=== PATIENT | female | born 1955 | race Caucasian/White ===

== ENCOUNTER 2021-06-06 16:00 | Inpatient (IN) | payer OTHER, MEDICAID ==
[~2021-06-06] VITALS: Ht 170.2 cm; Wt 57.0 kg
[2021-06-06] MEDS ORDERED: METO1TAB32 (16:30)
[2021-06-06] MEDS ORDERED: BUDE10.2 (16:31)
[2021-06-06] MEDS ORDERED: FURO40TA2 (16:31)
[2021-06-06] MEDS ORDERED: ATOR40TA75 (16:31)
[2021-06-06] MEDS ORDERED: ZOLO100T (16:31)
[2021-06-06] MEDS ORDERED: FOLI1TAB11 (16:31)
[2021-06-06] MEDS ORDERED: LISI5TAB11 (16:31)
[2021-06-06] MEDS ORDERED: ALBU8.5H (16:31)
[2021-06-06] MEDS ORDERED: ASPI81CH33 (16:31)
[2021-06-06] MEDS ORDERED: INCR1INH (16:31)
[2021-06-06 17:58] LABS: VENOUS PH 7.352 UNITS (7.330-7.430)
[2021-06-06 17:59] LABS: VENOUS BASE EXCESS -0.4 (-2.0-2.0); VENOUS HCO3 25.6 MEQ/L (23.0-27.0); VENOUS PARTIAL PRESSURE CO2 47.3 mmHg (38.0-50.0); VENOUS PARTIAL PRESSURE O2 25.6 mmHg (30.0-50.0); VENOUS STANDARD HCO3 22.8 MEQ/L; VENOUS TOTAL CO2 27.1 MEQ/L (24.0-28.0)
[2021-06-06 18:08] LABS: BASO # 0.1 10^3/uL (0.0-0.2); BASO % 0.7 % (0.0-1.0); EOS # 0.2 10^3/uL (0.0-0.5); EOS % 1.4 % (0.0-3.0); HEMATOCRIT 40.5 % (36.0-47.0); HEMOGLOBIN 13.6 g/dl (12.0-15.5); LYMPH # 1.8 10^3/uL (1.5-5.0); LYMPH % 17.6 % (24.0-44.0); MEAN CORPUSCULAR HEMOGLOBIN 32.6 pg (27.0-33.0); MEAN CORPUSCULAR HGB CONC 33.6 g/dl (32.0-36.5); MEAN CORPUSCULAR VOLUME 97.1 fl (80.0-96.0); MONO # 0.9 10^3/uL (0.0-0.8); MONO % 8.1 % (2.0-8.0); NEUTROPHILS # 7.5 10^3/uL (1.5-8.5); NEUTROPHILS % 71.6 % (36.0-66.0); PLATELET COUNT, AUTOMATED 312 10^3/uL (150-450); RED BLOOD COUNT 4.17 10^6/uL (4.00-5.40); WHITE BLOOD COUNT 10.4 10^3/uL (4.0-10.0)
[2021-06-06 18:42] LABS: ALBUMIN 4.3 GM/DL (3.2-5.2); ALT/SGPT 35 U/L (12-78); BILIRUBIN,DIRECT 0.2 MG/DL (0.0-0.2); BILIRUBIN,TOTAL 0.7 MG/DL (0.2-1.0); BLOOD UREA NITROGEN 15 MG/DL (7-18); CALCIUM LEVEL 10.5 MG/DL (8.8-10.2); CARBON DIOXIDE LEVEL 26 MEQ/L (21-32); CHLORIDE LEVEL 105 MEQ/L (98-107); CREATININE FOR GFR 0.74 MG/DL (0.55-1.30); GLOMERULAR FILTRATION RATE > 60.0 (>45); GLUCOSE, FASTING 110 MG/DL (70-100); NT-PRO BNP 955 PG/ML (<125); POTASSIUM SERUM 4.6 MEQ/L (3.5-5.1); SODIUM LEVEL 138 MEQ/L (136-145); TOTAL PROTEIN 7.9 GM/DL (6.4-8.2)
[2021-06-06] MEDS ORDERED: SYMBICORT 160/4.5MCG INHALER 6GM INH SCH (20:00)
[2021-06-06 20:46] LABS: CK-MB VALUE MASS 1.3 NG/ML (<3.6); MB/CK RELATIVE INDEX 2.1 (< OR =4)
[2021-06-06] MEDS: ATORVASTATIN 20 MG TAB PO SCH (21:00)
[2021-06-06] MEDS ORDERED: FUROSEMIDE 40MG/4ML VIAL (J1940) IV ONE (21:45)
[2021-06-06] MEDS ORDERED: FUROSEMIDE 100MG/10ML VIAL (J1940) IV ONE (22:05)
[2021-06-06] MEDS ORDERED: NITROGLYCERIN 2% OINT 1 GM *U/D* PKT TOP ONE (22:05)
[2021-06-06 22:57] LABS: CK-MB VALUE MASS 1.6 NG/ML (<3.6); MB/CK RELATIVE INDEX 2.91 (< OR =4)
[2021-06-07] MEDS ORDERED: MOM 30ML SUSPENSION UDC PO PRN (00:20)
[2021-06-07] MEDS ORDERED: MAALOX 30 ML SUSP *UDC PO PRN (00:20)
[2021-06-07] MEDS ORDERED: FOLI1TAB11 PO (01:13)
[2021-06-07] MEDS ORDERED: ALBU8.5H INH (01:13)
[2021-06-07] MEDS ORDERED: ATOR40TA75 PO (01:13)
[2021-06-07] MEDS ORDERED: ONDA-195 PO (01:13)
[2021-06-07] MEDS ORDERED: SYMB16INH INH (01:13)
[2021-06-07] MEDS ORDERED: FURO40TA2 PO (01:13)
[2021-06-07] MEDS ORDERED: ASPI1CHW3 PO (01:13)
[2021-06-07] MEDS ORDERED: ALBU83IN INH (01:13)
[2021-06-07] MEDS ORDERED: METO1TAB32 PO (01:13)
[2021-06-07] MEDS ORDERED: ZOLO100T PO (01:13)
[2021-06-07] MEDS ORDERED: LISI5TAB11 PO (01:13)
[2021-06-07] MEDS ORDERED: INCR1INH INH (01:13)
[2021-06-07] MEDS ORDERED: VITMTA PO (01:13)
[2021-06-07] MEDS ORDERED: HOME MED LIST COMPLETE! XX SCH (01:15)
[2021-06-07] MEDS ORDERED: ONDANSETRON 4 MG TAB PO PRN (03:20)
[2021-06-07] MEDS: ACETAMINOPHEN TAB 650MG DOSE (2X325MG) PO PRN ×4 (03:35→21:41)
[2021-06-07 06:19] LABS: BASO # 0.1 10^3/uL (0.0-0.2); BASO % 0.6 % (0.0-1.0); EOS # 0.1 10^3/uL (0.0-0.5); EOS % 1.1 % (0.0-3.0); HEMATOCRIT 32.9 % (36.0-47.0); LYMPH # 1.2 10^3/uL (1.5-5.0); LYMPH % 10.7 % (24.0-44.0); MEAN CORPUSCULAR HEMOGLOBIN 32.9 pg (27.0-33.0); MEAN CORPUSCULAR HGB CONC 34.7 g/dl (32.0-36.5); MEAN CORPUSCULAR VOLUME 94.8 fl (80.0-96.0); MONO # 0.9 10^3/uL (0.0-0.8); MONO % 8.3 % (2.0-8.0); NEUTROPHILS # 8.7 10^3/uL (1.5-8.5); NEUTROPHILS % 79.1 % (36.0-66.0); PLATELET COUNT, AUTOMATED 284 10^3/uL (150-450); RED BLOOD COUNT 3.47 10^6/uL (4.00-5.40)
[2021-06-07 06:25] LABS: HEMOGLOBIN 11.4 g/dl (12.0-15.5)
[2021-06-07] MEDS: HEPARIN SOD (PORCINE) 5000UNITS/ML 1ML VIAL/SYRINGE SQ SCH ×3 (06:34→21:40)
[2021-06-07 06:57] LABS: ALBUMIN 3.5 GM/DL (3.2-5.2); ALT/SGPT 27 U/L (12-78); BILIRUBIN,TOTAL 0.9 MG/DL (0.2-1.0); BLOOD UREA NITROGEN 13 MG/DL (7-18); C REACTIVE PROTEIN QUANTITATIV 0.86 MG/DL (0.00-0.30); CALCIUM LEVEL 9.4 MG/DL (8.8-10.2); CARBON DIOXIDE LEVEL 26 MEQ/L (21-32); CHLORIDE LEVEL 103 MEQ/L (98-107); CREATININE FOR GFR 0.63 MG/DL (0.55-1.30); GLOMERULAR FILTRATION RATE > 60.0 (>45); GLUCOSE, FASTING 147 MG/DL (70-100); MAGNESIUM LEVEL 1.8 MG/DL (1.8-2.4); POTASSIUM SERUM 3.1 MEQ/L (3.5-5.1); SODIUM LEVEL 138 MEQ/L (136-145); TOTAL PROTEIN 6.4 GM/DL (6.4-8.2)
[2021-06-07 07:53] LABS: ERYTHROCYTE SEDIMENTATION RATE 25 mm/hr (0-30)
[2021-06-07] MEDS: SYMBICORT 160/4.5MCG INHALER 6GM INH SCH ×2 (08:46→19:55)
[2021-06-07] MEDS: SERTRALINE 100 MG TAB PO SCH (08:53)
[2021-06-07] MEDS: METOPROLOL SUCC *XL* 25MG TAB (TopROL *XL*) PO SCH (08:53)
[2021-06-07] MEDS: FUROSEMIDE 40MG/4ML VIAL (J1940) IV SCH ×3 (08:53→23:49)
[2021-06-07] MEDS: POTASSIUM CHLORIDE 10MEQ SR TABLET PO SCH ×2 (08:54→21:40)
[2021-06-07] MEDS: ASPIRIN 81 MG CHEW TABLET PO SCH (08:54)
[2021-06-07] MEDS: lisinopriL 5 MG TAB PO SCH (08:54)
[2021-06-07] MEDS: FOLIC ACID 1 MG TAB PO SCH (08:54)
[2021-06-07] MEDS: MULTIVITAMINS/MINERALS THERAP 1 TAB PO SCH (08:54)
[2021-06-07 13:11] VITALS: O2SAT 93
[2021-06-07] MEDS: TIOTROPIUM INHALER/CAPSULE (SPIRIVA) INH SCH (13:13)
[2021-06-07 15:32] VITALS: BP 132/75
[2021-06-07] MEDS: CLINDAMYCIN 600 MG in IV 1 EA IV SCH ×2 (16:04→23:49)
[2021-06-07] MEDS: LACTOBACILLUS ACIDOPHILUS CAP (BACID) PO SCH (17:39)
[2021-06-07] MEDS: ATORVASTATIN 20 MG TAB PO SCH (21:40)
[2021-06-07 21:47] VITALS: BP 99/50
[2021-06-07 23:51] VITALS: BP 103/55
[2021-06-08] MEDS: ACETAMINOPHEN TAB 650MG DOSE (2X325MG) PO PRN ×5 (01:31→21:45)
[2021-06-08 06:00] VITALS: BP 111/68
[2021-06-08] MEDS: HEPARIN SOD (PORCINE) 5000UNITS/ML 1ML VIAL/SYRINGE SQ SCH ×3 (06:18→21:45)
[2021-06-08] MEDS: TIOTROPIUM INHALER/CAPSULE (SPIRIVA) INH SCH (07:14)
[2021-06-08] MEDS: SYMBICORT 160/4.5MCG INHALER 6GM INH SCH ×2 (07:16→20:08)
[2021-06-08 07:31] LABS: HEMATOCRIT 34.3 % (36.0-47.0); HEMOGLOBIN 11.7 g/dl (12.0-15.5); MEAN CORPUSCULAR HEMOGLOBIN 32.6 pg (27.0-33.0); MEAN CORPUSCULAR HGB CONC 34.1 g/dl (32.0-36.5); MEAN CORPUSCULAR VOLUME 95.5 fl (80.0-96.0); PLATELET COUNT, AUTOMATED 281 10^3/uL (150-450); RED BLOOD COUNT 3.59 10^6/uL (4.00-5.40)
[2021-06-08 07:57] LABS: ALBUMIN 3.3 GM/DL (3.2-5.2); ALT/SGPT 28 U/L (12-78); BILIRUBIN,TOTAL 0.9 MG/DL (0.2-1.0); BLOOD UREA NITROGEN 19 MG/DL (7-18); CALCIUM LEVEL 9.1 MG/DL (8.8-10.2); CARBON DIOXIDE LEVEL 26 MEQ/L (21-32); CHLORIDE LEVEL 101 MEQ/L (98-107); CREATININE FOR GFR 0.88 MG/DL (0.55-1.30); GLOMERULAR FILTRATION RATE > 60.0 (>45); GLUCOSE, FASTING 109 MG/DL (70-100); POTASSIUM SERUM 3.8 MEQ/L (3.5-5.1); SODIUM LEVEL 138 MEQ/L (136-145); TOTAL PROTEIN 6.3 GM/DL (6.4-8.2)
[2021-06-08] MEDS: CLINDAMYCIN 600 MG in IV 1 EA IV SCH ×3 (08:00→23:16)
[2021-06-08] MEDS: FOLIC ACID 1 MG TAB PO SCH (09:29)
[2021-06-08] MEDS: SERTRALINE 100 MG TAB PO SCH (09:30)
[2021-06-08] MEDS: lisinopriL 5 MG TAB PO SCH (09:30)
[2021-06-08] MEDS: LACTOBACILLUS ACIDOPHILUS CAP (BACID) PO SCH ×2 (09:30→18:01)
[2021-06-08] MEDS: ASPIRIN 81 MG CHEW TABLET PO SCH (09:30)
[2021-06-08] MEDS: MULTIVITAMINS/MINERALS THERAP 1 TAB PO SCH (09:30)
[2021-06-08] MEDS: FUROSEMIDE 40MG/4ML VIAL (J1940) IV SCH ×3 (09:31→23:16)
[2021-06-08] MEDS: METOPROLOL SUCC *XL* 25MG TAB (TopROL *XL*) PO SCH (09:31)
[2021-06-08 14:00] VITALS: BP 109/60
[2021-06-08] MEDS: ALBUTEROL 90 MCG/ACT 8GM HFA INHALER INH PRN ×2 (14:13→20:10)
[2021-06-08] MEDS: ATORVASTATIN 20 MG TAB PO SCH (20:45)
[2021-06-08] MEDS ORDERED: RAMELTEON 8 MG TAB (ROZEREM) PO SCH (21:00)
[2021-06-08 22:00] VITALS: BP 106/57
[2021-06-08 23:17] VITALS: BP 110/55
[2021-06-09] MEDS: ACETAMINOPHEN TAB 650MG DOSE (2X325MG) PO PRN (05:06)
[2021-06-09] MEDS: HEPARIN SOD (PORCINE) 5000UNITS/ML 1ML VIAL/SYRINGE SQ SCH ×2 (05:07→13:47)
[2021-06-09 06:00] VITALS: BP 119/64
[2021-06-09 06:37] LABS: HEMATOCRIT 32.3 % (36.0-47.0); HEMOGLOBIN 11.1 g/dl (12.0-15.5); MEAN CORPUSCULAR HEMOGLOBIN 32.6 pg (27.0-33.0); MEAN CORPUSCULAR HGB CONC 34.4 g/dl (32.0-36.5); PLATELET COUNT, AUTOMATED 266 10^3/uL (150-450); WHITE BLOOD COUNT 10.7 10^3/uL (4.0-10.0)
[2021-06-09 07:02] LABS: ALBUMIN 3.2 GM/DL (3.2-5.2); ALT/SGPT 27 U/L (12-78); BILIRUBIN,TOTAL 1.1 MG/DL (0.2-1.0); BLOOD UREA NITROGEN 16 MG/DL (7-18); CALCIUM LEVEL 9.2 MG/DL (8.8-10.2); CARBON DIOXIDE LEVEL 27 MEQ/L (21-32); CHLORIDE LEVEL 100 MEQ/L (98-107); CREATININE FOR GFR 0.88 MG/DL (0.55-1.30); GLOMERULAR FILTRATION RATE > 60.0 (>45); GLUCOSE, FASTING 113 MG/DL (70-100); POTASSIUM SERUM 3.6 MEQ/L (3.5-5.1); SODIUM LEVEL 136 MEQ/L (136-145); TOTAL PROTEIN 6.1 GM/DL (6.4-8.2)
[2021-06-09] MEDS: SYMBICORT 160/4.5MCG INHALER 6GM INH SCH (07:45)
[2021-06-09] MEDS: TIOTROPIUM INHALER/CAPSULE (SPIRIVA) INH SCH (07:45)
[2021-06-09] MEDS: FUROSEMIDE 40MG/4ML VIAL (J1940) IV SCH (08:09)
[2021-06-09] MEDS: CLINDAMYCIN 600 MG in IV 1 EA IV SCH (08:10)
[2021-06-09] MEDS: ASPIRIN 81 MG CHEW TABLET PO SCH (08:10)
[2021-06-09] MEDS: METOPROLOL SUCC *XL* 25MG TAB (TopROL *XL*) PO SCH (08:10)
[2021-06-09] MEDS: LACTOBACILLUS ACIDOPHILUS CAP (BACID) PO SCH (08:10)
[2021-06-09] MEDS: SERTRALINE 100 MG TAB PO SCH (08:10)
[2021-06-09] MEDS: MULTIVITAMINS/MINERALS THERAP 1 TAB PO SCH (08:10)
[2021-06-09] MEDS: FOLIC ACID 1 MG TAB PO SCH (08:10)
[2021-06-09 08:11] VITALS: BP 119/64
[2021-06-09] MEDS: lisinopriL 5 MG TAB PO SCH (08:11)
[2021-06-09] MEDS ORDERED: CLIN150C17 PO ×2 (08:13→10:20)
[2021-06-09] MEDS ORDERED: PROBCAP14 PO (08:13)
[2021-06-09] MEDS ORDERED: FURO40TA2 PO (08:14)
[2021-06-09] MEDS ORDERED: CLINDAMYCIN 150MG CAPSULE PO SCH (09:00)
== END 2021-06-09 13:59 | disposition home or self-care (01) | DRG 194 ==
LOC: M ED 16:00 → M ED INP 06-07 00:19 → ENRESERV 06-07 13:01 → M MSPAV 06-07 15:33
PROVIDERS: ADMIT Family Medicine; ATTEND Internal Medicine
DX: I11.0 Hypertensive heart disease with heart failure (principal); E87.2 Acidosis; J44.9 Chronic obstructive pulmonary disease, unspecified; Z95.1 Presence of aortocoronary bypass graft; L03.115 Cellulitis of right lower limb; L03.116 Cellulitis of left lower limb; I25.10 Atherosclerotic heart disease of native coronary artery without angina pectoris; E78.5 Hyperlipidemia, unspecified; I50.9 Heart failure, unspecified; R19.7 Diarrhea, unspecified; F10.10 Alcohol abuse, uncomplicated; E87.6 Hypokalemia; I16.0 Hypertensive urgency; F41.9 Anxiety disorder, unspecified; F32.A Depression, unspecified; Z79.82 Long term (current) use of aspirin; Z79.899 Other long term (current) drug therapy; Z88.8 Allergy status to other drugs, medicaments and biological substances

== ENCOUNTER → 2021-06-27 | Outpatient (REF) | payer OTHER, MEDICAID ==
[~2021-06-27] MED LIST: ALBU8.5H; ALBU8.5H INH; ALBU83IN INH; ASPI1CHW3 PO; ASPI81CH33; ATOR40TA75; ATOR40TA75 PO; BUDE10.2; CLIN150C17 PO; FOLI1TAB11; FOLI1TAB11 PO; FURO40TA2; FURO40TA2 PO; INCR1INH; INCR1INH INH; LISI-898; LISI-898 PO; METO1TAB32; METO1TAB32 PO; ONDA-195 PO; PROBCAP14 PO; SYMB16INH INH; VITMTA PO; ZOLO100T; ZOLO100T PO
[2021-06-27 17:28] LABS: BLOOD UREA NITROGEN 28 MG/DL (7-18); CARBON DIOXIDE LEVEL 22 MEQ/L (21-32); CHLORIDE LEVEL 107 MEQ/L (98-107); CREATININE FOR GFR 0.84 MG/DL (0.55-1.30); GLOMERULAR FILTRATION RATE > 60.0 (>45); GLUCOSE, FASTING 99 MG/DL (70-100); POTASSIUM SERUM 4.6 MEQ/L (3.5-5.1); SODIUM LEVEL 136 MEQ/L (136-145)
== END ==
LOC: M SFHCADAM 12:05
PROVIDERS: ATTEND Physician Assistant
DX: I50.43 Acute on chronic combined systolic (congestive) and diastolic (congestive) heart failure (principal)